=== PATIENT | male | born 1975 | race African-American/Black ===

== ENCOUNTER 2018-09-28 00:48 | Emergency (ER) | payer MEDICAID ==
[~2018-09-28] VITALS: Ht 175.3 cm; Wt 86.2 kg
[2018-09-28 03:03] LABS: Basophils # (auto) 0.1 uL; Eosinophils # (auto) 0.2 uL; Lymphocytes # (auto) 2.3 uL; Lymphocytes % (auto) 11.3 % (10.0-50.0)
[2018-09-28 03:05] LABS: Basophils % (auto) 0.3 % (0.0-2.0); Eosinophils % (auto) 0.8 % (0.0-7.0); Hematocrit 40.2 % (41.0-53.0); Hemoglobin 12.5 g/dL (13.5-17.5); Mean Corpuscular Hemoglobin 22.8 pg (28.0-32.0); Mean Corpuscular Hgb Conc. 31.2 g/dL (32.0-36.0); Mean Corpuscular Volume 73.3 fL (80.0-100.0); Monocytes # (auto) 1.7 uL; Monocytes % (auto) 8.6 % (0.0-12.0); Neutrophils # (auto) 15.9 uL; Nucleated Red Blood Cells % 0.1 %; Platelet Count (auto) 364 10^3/uL (140-450); Red Blood Cells 5.48 10^6/uL (4.5-5.90); White Blood Cell 20.2 10^3/uL (4.4-10.8)
[2018-09-28 03:11] LABS: Red Cell Distribution Width 22.8 % (11.8-14.3)
[2018-09-28 03:20] LABS: Albumin 3.4 g/dL (3.4-5.0); BUN/Creatinine Ratio 19.4; Calcium 9.2 mg/dL (8.5-10.1); Potassium 3.8 mmol/L (3.5-5.1)
[2018-09-28 03:23] LABS: Bilirubin, Total 0.6 mg/dL (0.2-1.0); Total Protein 9.6 g/dL (6.4-8.2)
[2018-09-28] MEDS ORDERED: SODIUM CHLORIDE 0.9% 1,000 ML IV ONE ×2 (04:45→09:00)
[2018-09-28] MEDS ORDERED: LEVOFLOXACIN 500MG 100 ML IV ONE (04:45)
[2018-09-28 05:06] LABS: Urine Bacteria NONE SEEN /hpf (None Seen); Urine Blood 2+ /uL (Negative); Urine Mucus FEW (None Seen); Urine Specific Gravity 1.018 (1.001-1.035); Urine WBC 1033 /hpf (0 - 3); Urine WBC Clumps PRESENT /hpf (None Seen)
[2018-09-28 07:52] VITALS: BP 127/78
[2018-09-28] MEDS ORDERED: ACETAMINOPHEN 325 MG TAB PO ONE (09:00)
== END 2018-09-28 09:22 | disposition left against medical advice (07) ==
LOC: ER 00:55
DX: N12 Tubulo-interstitial nephritis, not specified as acute or chronic (principal); G82.20 Paraplegia, unspecified; T83.038A Leakage of other urinary catheter, initial encounter; Z53.29 Procedure and treatment not carried out because of patient's decision for other reasons; Y84.6 Urinary catheterization as the cause of abnormal reaction of the patient, or of later complication, without mention of misadventure at the time of the procedure; Y92.89 Other specified places as the place of occurrence of the external cause
CPT/HCPCS: 36415; 51702; 80053; 81001; 83605; 83690; 85025; 87040; 96365; 99284; J1956; J7030